=== PATIENT | male | born 1945 | race Caucasian/White ===

== ENCOUNTER → 2023-09-23 11:51 | Outpatient (REF) | payer MEDICARE, OTHER, SELFPAY | LOC: RAD 11:51 | PROVIDERS: ATTENDING PHYSICIAN Internal Medicine Pulmonary Disease | DX: J98.11 Atelectasis (principal) | CPT/HCPCS: 71250 ==

== ENCOUNTER 2023-12-18 11:20 | Outpatient (RCR) | payer MEDICARE, OTHER, SELFPAY | END 2023-12-18 23:59 | disposition home or self-care (01) | LOC: CRHB 11:20 | PROVIDERS: ATTENDING PHYSICIAN Internal Medicine Cardiovascular Disease; FAMILY PHYSICIAN Internal Medicine | DX: I25.10 Atherosclerotic heart disease of native coronary artery without angina pectoris (principal); Z95.5 Presence of coronary angioplasty implant and graft; I25.2 Old myocardial infarction | CPT/HCPCS: G0422; G0423 ==

== ENCOUNTER 2024-01-15 11:16 | Outpatient (RCR) | payer MEDICARE, OTHER, SELFPAY | END 2024-01-15 23:59 | disposition home or self-care (01) | LOC: CRHB 11:16 | PROVIDERS: ATTENDING PHYSICIAN Internal Medicine Cardiovascular Disease; FAMILY PHYSICIAN Internal Medicine | DX: I25.10 Atherosclerotic heart disease of native coronary artery without angina pectoris (principal); Z95.5 Presence of coronary angioplasty implant and graft; I25.2 Old myocardial infarction | CPT/HCPCS: 93306; G0422; G0423 ==

== ENCOUNTER 2024-01-24 10:30 | Outpatient (RCR) | payer MEDICARE, OTHER, SELFPAY | END 2024-01-24 23:59 | disposition home or self-care (01) | LOC: CRHB 10:30 | PROVIDERS: ATTENDING PHYSICIAN Internal Medicine Cardiovascular Disease; FAMILY PHYSICIAN Internal Medicine | DX: Z95.5 Presence of coronary angioplasty implant and graft (principal); I25.10 Atherosclerotic heart disease of native coronary artery without angina pectoris; I21.4 Non-ST elevation (NSTEMI) myocardial infarction | CPT/HCPCS: G0422; G0423 ==

== ENCOUNTER → 2024-05-05 15:51 | Outpatient (REF) | payer MEDICARE, OTHER, SELFPAY | LOC: MRI 3T 15:51 | PROVIDERS: ATTENDING PHYSICIAN Physician Assistant Surgical; FAMILY PHYSICIAN Physical Medicine & Rehabilitation Pain Medicine | DX: M48.062 Spinal stenosis, lumbar region with neurogenic claudication (principal) | CPT/HCPCS: 72148 ==

== ENCOUNTER → 2024-06-16 08:37 | Outpatient (REF) | payer MEDICARE, OTHER, SELFPAY | LOC: HWRAD 08:37 | PROVIDERS: ATTENDING PHYSICIAN Nurse Practitioner Family | DX: R22.43 Localized swelling, mass and lump, lower limb, bilateral (principal) | CPT/HCPCS: 93970 ==

== ENCOUNTER → 2024-09-14 16:38 | Outpatient (REF) | payer MEDICARE, OTHER, SELFPAY ==
[2024-09-14 18:17] LABS: Blood Urea Nitrogen 29 mg/dl (9-20); Calcium 9.4 mg/dl (8.4-10.2); Carbon Dioxide 26 mmol/L (22-30); Chloride 100 mmol/L (98-107); Glucose 122 mg/dl (70-99); Potassium 4.7 mmol/L (3.5-5.1); Sodium 138 mmol/L (135-145); eGFR 51.45
[2024-09-14 18:25] LABS: NT-proBNP 10600 pg/ml
== END ==
LOC: REG 16:38
PROVIDERS: ATTENDING PHYSICIAN Nurse Practitioner; FAMILY PHYSICIAN Nurse Practitioner Family
DX: N18.32 Chronic kidney disease, stage 3b (principal); R06.02 Shortness of breath
CPT/HCPCS: 36415; 80048; 83880